=== PATIENT | female | born 1955 | race Caucasian/White ===

== ENCOUNTER 2020-10-22 09:57 | Day surgery (SDC) | payer OTHER, SELFPAY ==
[2020-10-22] MEDS ORDERED: MIDAZOLAM 5 MG/5 ML VIAL ONE (11:31)
[2020-10-22] MEDS ORDERED: diphenhydrAMINE 50 MG/ML VIAL ONE (11:31)
[2020-10-22] MEDS ORDERED: fentaNYL citrate 0.05 MG/ML VIAL ONE (11:31)
[2020-10-22] MEDS ORDERED: fentaNYL citrate 0.05 MG/ML VIAL IVP ONE (13:05)
[2020-10-22] MEDS ORDERED: MIDAZOLAM 2 MG/2 ML VIAL IVP ONE (13:05)
== END 2020-10-22 13:15 | disposition home or self-care (01) ==
LOC: MDS 09:57 → MFCC 10:37 → MDS 13:15
PROVIDERS: ATTEND Internal Medicine Gastroenterology
DX: R13.10 Dysphagia, unspecified (principal); K21.9 Gastro-esophageal reflux disease without esophagitis; K44.9 Diaphragmatic hernia without obstruction or gangrene; K29.70 Gastritis, unspecified, without bleeding; Z79.899 Other long term (current) drug therapy; Z20.822 Contact with and (suspected) exposure to COVID-19
CPT/HCPCS: 43239; J2250; J3010; U0003; 88305; 88312; 88313; 88342; J1200